=== PATIENT | female | born 1970 | race Caucasian/White ===

== ENCOUNTER 2019-01-28 10:19 | Emergency (ER) | payer OTHER ==
[~2019-01-28] VITALS: Ht 170.2 cm; Wt 95.2 kg
--- OUTSIDE RECORDS SUMMARY | ~2019-01-28 | XMS | Clinical Summary ---
Demographics + + + | Address | [address] [place] [address] Rd | | | [place] [address] | + + + | Home Phone | | + + + | Preferred Language | Unknown | + + + | Marital Status | Single | + + + | Sabianism Affiliation | Unknown | + + + | Race | Unknown | + + + | Ethnic Group | Unknown | + + + Author + + + | Author | [facility] | | | and [place] | + + + | Organization | [facility] | | | and [place] | + + + | Address | Unknown | + + + | Phone | Unavailable | + + + Support + + +---------+ + | Name | Relationship | Address | Phone | + + +---------+ + | CAST,ANYLA | ECON | Unknown | | + + +---------+ + | TYRELL OLSON | ECON | Unknown | | + + +---------+ + Care Team Providers + +------+ + | Care Shelf Filler Name | Role | Phone | + +------+ + | Radha Ivory | PCP | | | PA-C | | | + +------+ + Allergies Not on File Medications Not on file Active Problems Not on file Social History + +-------+ +--------+------+ | Tobacco Use | Types | Packs/Day | Years | Date | | | | | Used | | + +-------+ +--------+------+ | Never Assessed | | | | | + +-------+ +--------+------+ + + + | Sex Assigned at | Date Recorded | | | | + + + | Not on file | | + + + + + + + | Job Start Date | Occupation | Industry | + + + + | Not on file | Not on file | Not on file | + + + + + + + + | Travel History | Travel Start | Travel End | + + + + + + | No recent travel history available. | + + Last Filed Vital Signs Not on file Plan of Treatment +--------+---------+ + + + | Date | Type | Specialty | Care Team | Description | +--------+---------+ + + + | 08/06/ | Office | Sleep Medicine | [place] | | | 2019 | Visit | | MD Ingrid [address] | | | | | | [place] | | | | | | [place] [address] | | | | | | [phone] | | | | | | | | +--------+---------+ + + + + + + + + | Health Maintenance | Due Date | Last Done | Comments | + + + + + | Vaccine: | | | | | Dtap/Tdap/Td (1 - | 1 | | | | Tdap) | | | | + + + + + | Cervical Cancer | | | | | Screening (Pap) | 2 | | | + + + + + | Breast Cancer | | | | | Screening | 7 | | | + + + + + | Vaccine: Influenza | | | | | (#1) | 9 | | | + + + + + Results Not on filefrom Last 3 Months Insurance + +--------+ +--------+ +---------+------+ | Payer | Benefi | Subscriber | Effect | Phone | Address | Type | | | t Plan | ID | malcolm | | | | | | / | | Dates | | | | | | Group | | | | | | + +--------+ +--------+ +---------+------+ | [facility] | [id number] | 05/02/19 | [phone] | | PPO | | PLAN | PERSON | | 19-Pre | 5 | | | | | AL | | sent | | | | | | OPEN | | | | | | | | OPTION | | | | | | + +--------+ +--------+ +---------+------+ + +--------+ +--------+ + + | Guarantor Name | Accoun | Relation to | Date | Phone | Billing Address | | | t Type | Patient | of | | | | | | | | | | + +--------+ +--------+ + + | Natalya Leo | Person | Self [birth year] | [address] | | | al/Fam | | 1970 | [phone] | [place] [address] | | | robert | | | 3 (Home) | | | | | | | [phone] | | | | | | | 3 (Work) | | + +--------+ +--------+ + + Advance Directives Patient has advance care planning documents on file. For more information, please contact:[facility] [address]"
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
[~2019-01-28 10:19] MED LIST: ALEVE220 MG PO; ASPIRIN EC325 MG PO; CELECOXIB200 MG PO; DEPO-PROVER150 MG/ML IM; ESTRADIOL1 MG PO; GABAPENTIN600 MG PO; HEALTHYLAX17 GM PO; HYOSCYAMINE0.125 MG PO; LEVOTHYROXINE112 MCG PO; LEVOTHYROXINE125 MCG PO; LISINOPRIL-HCT1 EAC2 PO; MIDOL CAPLET1 EAC1 PO; MOTRIN IB200 MG PO; OXYCODONE HCL5 MG PO; PAXIL10 MG PO; PERCOCET 5-3251 EACH PO; PREVACID30 MG PO; RANITIDINE HCL150 MG PO; SENNA LAX8.6 MG PO; SULFAMETHOXAZO1 EAC1 PO; VITAMIN D50000 UNI1 PO
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
[2019-01-28] MEDS ORDERED: PREDNISONE20 MG PO (12:46)
== END 2019-01-28 12:50 | disposition home or self-care (01) ==
LOC: ED 10:19
DX: T78.3XXA Angioneurotic edema, initial encounter (principal); I10 Essential (primary) hypertension; F17.200 Nicotine dependence, unspecified, uncomplicated; Z88.0 Allergy status to penicillin; Z88.1 Allergy status to other antibiotic agents; Z79.899 Other long term (current) drug therapy; Z79.82 Long term (current) use of aspirin
CPT/HCPCS: 80053; 85025; 96361; 96374; 96375; 99283-25; J1200; J2930; J7040

== ENCOUNTER 2024-08-09 13:13 | Emergency (ER) | payer BC ==
[~2024-08-09] VITALS: Ht 170.2 cm; Wt 107.0 kg
[~2024-08-09 13:13] MED LIST changes: +PREDNISONE20 MG PO
[2024-08-09 14:43] LABS: BASOPHILS 2.2 % (0-2); EOSINOPHILS 2.5 % (0-6); HEMATOCRIT 41.9 % (35.0-50.0); HEMOGLOBIN 15.2 g/dL (12.0-18.0); LYMPHOCYTES 24.1 % (24-44); MCHC 36.2 g/dl (30-36); MCV 88.4 fl (81-99); MONOCYTES 5.2 % (0-12); PLATELET COUNT 224 K/uL (140-440); RBC 4.74 M/ul (4.3-5.7); RDW 13.7 (10.5-15.0)
[2024-08-09 14:46] LABS: ALBUMIN 3.7 g/dL (3.4-5.0); BILIRUBIN, TOTAL 0.4 mg/dL (0.2-1.0); BUN/CREATININE RATIO 20.83 (6.0-28.6); CALCIUM 9.2 mg/dL (8.5-10.1); CREATININE, SERUM 0.72 mg/dL (0.55-1.02); PROTEIN, TOTAL 7.4 g/dL (6.4-8.2)
[2024-08-09 16:09] LABS: BILIRUBIN, URINE NEGATIVE (negative); BLOOD/HGB, URINE NEGATIVE (Negative); KETONE, URINE SMALL (Negative); LEUK ESTERASE, URINE NEGATIVE (negative); NITRITE, URINE NEGATIVE (negative)
[2024-08-09 16:17] LABS: EPITHELIAL CELLS, URINE SQUAMOUS 4+ /lpf (0-1+); RED BLOOD CELLS, URINE 0-1 /hpf (0-5); REFLEX CULTURE, URINE No (No); WHITE BLOOD CELLS, URINE 0-1 /HPF (0-5)
[2024-08-09 17:28] VITALS: BP 146/92
== END 2024-08-09 17:28 | disposition home or self-care (01) ==
LOC: ED 13:13
PROVIDERS: Emergency Medicine
DX: E11.65 Type 2 diabetes mellitus with hyperglycemia (principal); I10 Essential (primary) hypertension; F17.200 Nicotine dependence, unspecified, uncomplicated; Z88.0 Allergy status to penicillin; Z79.899 Other long term (current) drug therapy
CPT/HCPCS: 36415; 80053; 81001; 84443; 85025; 99284